=== PATIENT | female | born 1935 | race African-American/Black ===

== ENCOUNTER 2020-07-03 10:30 | Emergency (ER) | payer MEDICARE | END 2020-07-03 11:56 | disposition home or self-care (01) | LOC: ERS 10:30 | DX: M62.838 Other muscle spasm (principal); I25.2 Old myocardial infarction; K21.9 Gastro-esophageal reflux disease without esophagitis; I10 Essential (primary) hypertension; E11.9 Type 2 diabetes mellitus without complications | CPT/HCPCS: 99283 ==

== ENCOUNTER 2021-02-12 17:38 | Emergency (ER) | payer MEDICARE | END 2021-02-12 19:40 | disposition home or self-care (01) | LOC: ERS 17:38 | DX: S10.96XA Insect bite of unspecified part of neck, initial encounter (principal); S80.862A Insect bite (nonvenomous), left lower leg, initial encounter; S80.861A Insect bite (nonvenomous), right lower leg, initial encounter; I25.2 Old myocardial infarction; E11.9 Type 2 diabetes mellitus without complications; K21.9 Gastro-esophageal reflux disease without esophagitis; I10 Essential (primary) hypertension; Z79.899 Other long term (current) drug therapy; W57.XXXA Bitten or stung by nonvenomous insect and other nonvenomous arthropods, initial encounter | CPT/HCPCS: 99282 ==

== ENCOUNTER 2022-05-28 08:27 | Emergency (ER) | payer MEDICARE ==
[2022-05-28 09:40] LABS: #Eosinphils 0.1 thou/uL (0.0-0.7); #Lymphocytes 1.6 thou/uL (1.20-3.40); #Monocytes 0.5 thou/uL (0.11-0.59); #Neutrophils 2.5 thou/uL (1.40-6.50); %Basophils 0.9 % (0.0-1.0); %Eosinophils 2.8 % (0.0-10.0); %Lymphocytes 33.7 % (21.0-51.0); %Neutrophils 52.6 % (42.0-75.0); Hemoglobin 12.8 g/dL (12.0-16.0); Mean Corpuscular HGB CONC 31.9 g/dL (32.0-36.0); Mean Corpuscular Hemoglobin 29.6 pg (27.0-31.0); Mean Corpuscular Volume 92.8 fl (78.0-98.0); Mean Platelet Volume 7.2 fL (7.4-10.4); Platelet Count 194 10x3/uL (130-400); RBC Distribution Width 12.6 % (11.5-14.5); Red Blood Cell (RBC) Count 4.31 mill/uL (4.20-5.40); White Blood Cell (WBC) Count 4.8 10x3/uL (4.8-10.8)
[2022-05-28 10:03] LABS: ALT (SGPT) 18 U/L (8-55); AST (SGOT) 25 U/L (5-34); Albumin 4.3 g/dL (3.4-4.8); Alkaline Phosphatase 79 U/L (40-110); Anion Gap 17 mmol/L (10-20); BUN (Urea Nitrogen) 32 mg/dL (9.8-20.1); Bilirubin, Total 0.6 mg/dL (0.2-1.2); Calc. Creatinine Clearance 0 mL/min (70-130); Calcium 9.5 mg/dL (7.8-10.44); Carbon Dioxide 21 mmol/L (23-31); Chloride 106 mmol/L (98-107); Estimated GFR 31; Globulin 3.3 g/dL (2.4-3.5); Glucose 62 mg/dL (83-110); Potassium 3.6 mmol/L (3.5-5.1); Protein, Total 7.6 g/dL (5.8-8.1); Sodium 140 mmol/L (136-145)
== END 2022-05-28 13:55 | disposition short-term general hospital (02) ==
LOC: ERS 08:27
DX: R07.9 Chest pain, unspecified (principal); E11.9 Type 2 diabetes mellitus without complications; I10 Essential (primary) hypertension
CPT/HCPCS: 36415; 71045; 80053; 83880; 84484; 85025; 93005

== ENCOUNTER 2023-10-03 08:04 | Inpatient (IN) | payer MEDICARE ==
[2023-10-04 12:27] VITALS: BMI 22.0
[2023-10-07 19:23] VITALS: BMI 19.2
[2023-10-09 12:14] VITALS: BP 116/70; TEMP 98.9
== END 2023-10-09 15:25 | disposition home health service (06) | DRG 65 ==
LOC: ERS 08:04 → ERHOLD 10:54 → 2SE 19:57 → OBSVTOIN 10-04 15:07
PROVIDERS: ADMIT Family Medicine; ATTEND Internal Medicine
PROC: B24BZZ4 Ultrasonography of Heart with Aorta, Transesophageal (ICD-10-PCS; principal; 2023-10-08)
DX: I63.9 Cerebral infarction, unspecified (principal); I13.0 Hypertensive heart and chronic kidney disease with heart failure and stage 1 through stage 4 chronic kidney disease, or unspecified chronic kidney disease; N17.9 Acute kidney failure, unspecified; I50.32 Chronic diastolic (congestive) heart failure; N18.30 Chronic kidney disease, stage 3 unspecified; I25.10 Atherosclerotic heart disease of native coronary artery without angina pectoris; E11.22 Type 2 diabetes mellitus with diabetic chronic kidney disease; F03.90 Unspecified dementia, unspecified severity, without behavioral disturbance, psychotic disturbance, mood disturbance, and anxiety; Z66 Do not resuscitate; I25.2 Old myocardial infarction; F41.9 Anxiety disorder, unspecified; K21.9 Gastro-esophageal reflux disease without esophagitis; Z88.2 Allergy status to sulfonamides; Z79.82 Long term (current) use of aspirin; Z79.899 Other long term (current) drug therapy; Z98.890 Other specified postprocedural states; Z79.84 Long term (current) use of oral hypoglycemic drugs
CPT/HCPCS: 36415; 36416; 70450; 70551; 80048; 80053; 80061; 81003; 81015; 83036; 84443; 84484; 85025; 85027; 93005; 93306; 93312; 93880; 96372; 96374; 96376; G0378; J1650; J1815; J2704; J3480; J3490

== ENCOUNTER 2024-01-08 21:33 | Inpatient (IN) | payer MEDICARE ==
[~2024-01-08 21:33] MED LIST: Iopamidol 370 76% 100 ML VIAL ONE
[2024-01-08 22:07] LABS: #Basophils 0.07 10x3/uL (0.0-0.2); %Basophils 1.6 % (0.0-1.0); %Eosinophils 4.6 % (0.0-10.0); %Lymphocytes 33.8 % (21.0-51.0); %Monocytes 15.3 % (0.0-10.0); %Neutrophils 44.2 % (42.0-75.0); Hematocrit 44.3 % (36.0-47.0); Hemoglobin 14.2 g/dL (12.0-16.0); Mean Corpuscular HGB CONC 32.1 g/dL (32.0-36.0); Mean Corpuscular Volume 90.4 fL (78.0-98.0); Mean Platelet Volume 9.9 fL (7.4-10.4); Platelet Count 180 10x3/uL (130-400); RBC Distribution Width 15.5 % (11.5-14.5)
[2024-01-08 22:11] LABS: PTT 27.5 sec (22.9-36.1); Prothrombin Time 12.7 sec (12.0-14.7)
[2024-01-08 22:32] LABS: ALT (SGPT) 25 U/L (8-55); AST (SGOT) 31 U/L (5-34); Albumin 3.2 g/dL (3.4-4.8); Alkaline Phosphatase 80 U/L (40-110); Anion Gap 14 mmol/L (10-20); BUN (Urea Nitrogen) 16 mg/dL (9.8-20.1); Bilirubin, Total 0.3 mg/dL (0.2-1.2); Calc. Creatinine Clearance 0 mL/min (70-130); Calcium 9.3 mg/dL (7.8-10.44); Carbon Dioxide 18 mmol/L (23-31); Chloride 111 mmol/L (98-107); Estimated GFR 43; Globulin 3.9 g/dL (2.4-3.5); Glucose 312 mg/dL (83-110); Potassium 4.9 mmol/L (3.5-5.1); Protein, Total 7.1 g/dL (5.8-8.1); Sodium 138 mmol/L (136-145)
[2024-01-08 22:34] LABS: Troponin I Less than 0.010 ng/mL (< 0.028)
[2024-01-08] MEDS ORDERED: Aspirin Chewable 81 MG TAB ONE (22:44)
[2024-01-08] MEDS ORDERED: hydrALAZINE 20 MG/ML VIAL ONE (22:44)
[2024-01-09] MEDS ORDERED: Acetaminophen 650 MG Suppository PR PRN (01:24)
[2024-01-09] MEDS ORDERED: Ondansetron PF 4 MG/2 ML Vial IVP PRN (01:24)
[2024-01-09] MEDS ORDERED: Ondansetron ODT 4 MG TAB PO PRN (01:24)
[2024-01-09] MEDS ORDERED: hydrALAZINE 20 MG/ML VIAL SLOW IVP PRN (01:24)
[2024-01-09] MEDS ORDERED: Acetaminophen 325 MG TAB PO PRN (01:24)
[2024-01-09] MEDS ORDERED: Dextrose 50% Abboject 50 ML SYRINGE SLOW IVP PRN (01:39)
[2024-01-09] MEDS ORDERED: Dextrose 5% in Water 1,000 ML IV PRN (01:39)
[2024-01-09] MEDS ORDERED: Glucagon 1 MG/ML KIT IM PRN (01:39)
[2024-01-09] MEDS ORDERED: Clopidogrel Bisulfate 75 MG TAB ONE (08:04)
[2024-01-09] MEDS ORDERED: Famotidine 20 MG TAB ONE (08:05)
[2024-01-09] MEDS ORDERED: Atorvastatin Calcium 40 MG TAB ONE (08:05)
[2024-01-09] MEDS ORDERED: Aspirin Chewable 81 MG TAB ONE (08:05)
[2024-01-09] MEDS ORDERED: Memantine 10 MG TAB ONE (08:05)
[2024-01-09] MEDS: Memantine 5 MG TAB PO SCH (08:45)
[2024-01-09] MEDS: Atorvastatin Calcium 40 MG TAB PO SCH (08:47)
[2024-01-09] MEDS: Famotidine 20 MG TAB PO SCH (08:48)
[2024-01-09] MEDS: Clopidogrel Bisulfate 75 MG TAB PO SCH (08:48)
[2024-01-09] MEDS: Famotidine/PF 20 mg/2ml Vial SLOW IVP SCH (08:48)
[2024-01-09] MEDS: Aspirin Chewable 81 MG TAB PO SCH (08:48)
[2024-01-09] MEDS: Dapagliflozin Propanediol 10 MG TAB PO SCH (11:18)
[2024-01-09] MEDS: Glimepiride 4 MG TAB PO SCH (11:18)
[2024-01-09] MEDS ORDERED: Insulin Lispro 100 UNIT/ML 10 ML VIAL ONE (12:03)
[2024-01-09] MEDS: Insulin Lispro 100 UNIT/ML 10 ML VIAL SC PRN (13:12)
[2024-01-09 15:43] VITALS: BMI 20.5
[2024-01-09 17:35] LABS: Anion Gap 13 mmol/L (10-20); BUN (Urea Nitrogen) 11 mg/dL (9.8-20.1); Calc. Creatinine Clearance 29 mL/min (70-130); Calcium 9.8 mg/dL (7.8-10.44); Carbon Dioxide 22 mmol/L (23-31); Cardiac Risk 3.1 (Less than 4.5); Chloride 109 mmol/L (98-107); Cholesterol 166 mg/dl (< 200 Desired); Estimated GFR 55; Glucose 91 mg/dL (83-110); HDL Cholesterol 54 mg/dL (>60 Neg Risk); LDL Cholesterol, Calculated 96 mg/dL; Potassium 3.6 mmol/L (3.5-5.1); Sodium 140 mmol/L (136-145); Triglycerides 79 mg/dL (Less than 150)
[2024-01-09] MEDS: Labetalol HCl 100 MG/20 ML VIAL SLOW IVP PRN (20:14)
[2024-01-09 21:04] LABS: Bacteria/HPF None Seen HPF (None Seen); Bilirubin Negative (Negative); Blood, Urine Negative (Negative); CAUTI Indications for Culture Alt mental st,lethar; Clarity Clear (Clear); Glucose, Urine (Dipstick) Greater than 1000 mg/dL (Negative); Ketone, Urine Negative (Negative); Leukocyte Negative Leu/uL (Negative); Nitrite Negative (Negative); Protein, Urine (Dipstick) 50 mg/dL (Neg-Trace); RBC/HPF 0-3 HPF (0-3); Specific Gravity, Urine 1.031 (1.002-1.036); Squamous Epithelial None Seen HPF (0-3); Urobilinogen Normal mg/dL (Less than 2); WBC/HPF 0-3 HPF (0-3)
[2024-01-09 21:14] LABS: Urine Culture Reflex No No
[2024-01-10] MEDS: Famotidine 20 MG TAB PO SCH (10:21)
[2024-01-10] MEDS: Famotidine/PF 20 mg/2ml Vial SLOW IVP SCH (10:22)
[2024-01-10 10:34] VITALS: BMI 20.5
[2024-01-10] MEDS: Ziprasidone 20 MG VIAL IM SCH (20:55)
[2024-01-11] MEDS: Atorvastatin Calcium 40 MG TAB PO SCH (01:26)
[2024-01-11] MEDS: Famotidine/PF 20 mg/2ml Vial SLOW IVP SCH (08:58)
[2024-01-11] MEDS: Famotidine 20 MG TAB PO SCH (08:59)
[2024-01-11] MEDS: FLU (Fluad Triv) TS24-25 (65UP)/MF59C/PF 45 MCG/0.5 ML Syringe IM ONE (09:00)
[2024-01-11] MEDS: QUEtiapine 25 MG TAB PO SCH (09:43)
[2024-01-11] MEDS ORDERED: Ipratropium/Albuterol 3 ML NEB NEB PRN (11:58)
[2024-01-11] MEDS: Ipratropium/Albuterol 3 ML NEB NEB SCH (14:02)
[2024-01-11] MEDS: Ziprasidone 20 MG VIAL IM SCH (20:53)
[2024-01-11] MEDS: Sterile Water 10 ML VIAL FS PRN (20:53)
[2024-01-12 04:47] LABS: Anion Gap 18 mmol/L (10-20); BUN (Urea Nitrogen) 24 mg/dL (9.8-20.1); Calc. Creatinine Clearance 19 mL/min (70-130); Calcium 9.4 mg/dL (7.8-10.44); Carbon Dioxide 16 mmol/L (23-31); Chloride 111 mmol/L (98-107); Estimated GFR 33; Glucose 179 mg/dL (83-110); Potassium 4.1 mmol/L (3.5-5.1); Sodium 141 mmol/L (136-145)
[2024-01-12 06:36] LABS: #Basophils 0.07 10x3/uL (0.0-0.2); %Basophils 1.2 % (0.0-1.0); %Eosinophils 2.7 % (0.0-10.0); %Lymphocytes 17.4 % (21.0-51.0); %Monocytes 13.9 % (0.0-10.0); %Neutrophils 64.4 % (42.0-75.0); Hematocrit 46.5 % (36.0-47.0); Hemoglobin 14.7 g/dL (12.0-16.0); Mean Corpuscular HGB CONC 31.6 g/dL (32.0-36.0); Mean Corpuscular Hemoglobin 28.7 pg (27.0-31.0); Mean Corpuscular Volume 90.6 fL (78.0-98.0); Mean Platelet Volume 9.6 fL (7.4-10.4); Platelet Count 163 10x3/uL (130-400); RBC Distribution Width 15.4 % (11.5-14.5); Red Blood Cell (RBC) Count 5.13 mill/uL (4.20-5.40)
[2024-01-12] MEDS: Lactated Ringer's 500 ML IV SCH (09:23)
[2024-01-12] MEDS ORDERED: Ipratropium/Albuterol 3 ML NEB NEB PRN (17:55)
[2024-01-13] MEDS: QUEtiapine 25 MG TAB PO SCH (00:11)
[2024-01-13 05:38] LABS: #Basophils 0.05 10x3/uL (0.0-0.2); %Eosinophils 3.9 % (0.0-10.0); %Lymphocytes 19.7 % (21.0-51.0); %Monocytes 12.3 % (0.0-10.0); %Neutrophils 62.9 % (42.0-75.0); Hematocrit 44.5 % (36.0-47.0); Hemoglobin 14.2 g/dL (12.0-16.0); Mean Corpuscular HGB CONC 31.9 g/dL (32.0-36.0); Mean Corpuscular Hemoglobin 28.7 pg (27.0-31.0); Mean Corpuscular Volume 90.1 fL (78.0-98.0); Mean Platelet Volume 9.6 fL (7.4-10.4); Platelet Count 164 10x3/uL (130-400); RBC Distribution Width 15.3 % (11.5-14.5); Red Blood Cell (RBC) Count 4.94 mill/uL (4.20-5.40)
[2024-01-13 06:45] LABS: Anion Gap 15 mmol/L (10-20); BUN (Urea Nitrogen) 26 mg/dL (9.8-20.1); Calc. Creatinine Clearance 21 mL/min (70-130); Calcium 9.1 mg/dL (7.8-10.44); Carbon Dioxide 18 mmol/L (23-31); Chloride 112 mmol/L (98-107); Estimated GFR 37; Glucose 153 mg/dL (83-110); Potassium 3.7 mmol/L (3.5-5.1); Sodium 141 mmol/L (136-145)
[2024-01-14 00:13] LABS: #Basophils 0.04 10x3/uL (0.0-0.2); %Basophils 0.7 % (0.0-1.0); %Eosinophils 2.6 % (0.0-10.0); %Lymphocytes 17.3 % (21.0-51.0); %Monocytes 12.4 % (0.0-10.0); %Neutrophils 66.8 % (42.0-75.0); Hematocrit 44.5 % (36.0-47.0); Hemoglobin 14.2 g/dL (12.0-16.0); Mean Corpuscular HGB CONC 31.9 g/dL (32.0-36.0); Mean Corpuscular Hemoglobin 28.8 pg (27.0-31.0); Mean Corpuscular Volume 90.3 fL (78.0-98.0); Mean Platelet Volume 9.7 fL (7.4-10.4); Platelet Count 153 10x3/uL (130-400); RBC Distribution Width 15.3 % (11.5-14.5); Red Blood Cell (RBC) Count 4.93 mill/uL (4.20-5.40)
[2024-01-14 00:28] LABS: Base Excess -4.5 mEq/L (-2.0 to +3.0); Chloride (VBG) 109 mmol/L (98-106); Hematocrit-VBG 44 % (36.0-47.0); Hemoglobin (Hb) 15.1 g/dL (11.7-16.1); pH (venous) 7.471 (7.32-7.43)
[2024-01-14 00:43] LABS: ALT (SGPT) 24 U/L (8-55); AST (SGOT) 24 U/L (5-34); Albumin 2.9 g/dL (3.4-4.8); Alkaline Phosphatase 80 U/L (40-110); Anion Gap 15 mmol/L (10-20); BUN (Urea Nitrogen) 28 mg/dL (9.8-20.1); Bilirubin, Total 0.5 mg/dL (0.2-1.2); Calc. Creatinine Clearance 20 mL/min (70-130); Carbon Dioxide 16 mmol/L (23-31); Chloride 111 mmol/L (98-107); Estimated GFR 35; Globulin 3.7 g/dL (2.4-3.5); Glucose 225 mg/dL (83-110); Potassium 3.9 mmol/L (3.5-5.1); Protein, Total 6.6 g/dL (5.8-8.1); Sodium 138 mmol/L (136-145)
[2024-01-14 04:25] LABS: #Basophils 0.04 10x3/uL (0.0-0.2); %Basophils 0.7 % (0.0-1.0); %Eosinophils 2.4 % (0.0-10.0); %Lymphocytes 21.6 % (21.0-51.0); %Monocytes 12.5 % (0.0-10.0); %Neutrophils 62.4 % (42.0-75.0); Hematocrit 43.1 % (36.0-47.0); Mean Corpuscular HGB CONC 32.5 g/dL (32.0-36.0); Mean Corpuscular Hemoglobin 28.2 pg (27.0-31.0); Mean Corpuscular Volume 86.9 fL (78.0-98.0); Platelet Count 162 10x3/uL (130-400); RBC Distribution Width 15.4 % (11.5-14.5); Red Blood Cell (RBC) Count 4.96 mill/uL (4.20-5.40)
[2024-01-14 04:46] LABS: Anion Gap 14 mmol/L (10-20); BUN (Urea Nitrogen) 26 mg/dL (9.8-20.1); Calc. Creatinine Clearance 21 mL/min (70-130); Carbon Dioxide 18 mmol/L (23-31); Chloride 111 mmol/L (98-107); Estimated GFR 37; Glucose 198 mg/dL (83-110); Potassium 3.9 mmol/L (3.5-5.1); Sodium 139 mmol/L (136-145)
[2024-01-14] MEDS: Insulin Lispro 100 UNIT/ML 10 ML VIAL SC PRN (21:54)
[2024-01-14] MEDS: QUEtiapine 25 MG TAB PO SCH (21:55)
[2024-01-15 04:51] LABS: #Basophils 0.04 10x3/uL (0.0-0.2); %Basophils 0.7 % (0.0-1.0); %Eosinophils 3.2 % (0.0-10.0); %Neutrophils 60.9 % (42.0-75.0); Hematocrit 42.7 % (36.0-47.0); Mean Corpuscular HGB CONC 32.8 g/dL (32.0-36.0); Mean Corpuscular Hemoglobin 28.9 pg (27.0-31.0); Mean Platelet Volume 9.9 fL (7.4-10.4); Platelet Count 167 10x3/uL (130-400); RBC Distribution Width 15.3 % (11.5-14.5); Red Blood Cell (RBC) Count 4.85 mill/uL (4.20-5.40)
[2024-01-15 05:57] LABS: Anion Gap 16 mmol/L (10-20); BUN (Urea Nitrogen) 22 mg/dL (9.8-20.1); Calc. Creatinine Clearance 24 mL/min (70-130); Calcium 8.9 mg/dL (7.8-10.44); Carbon Dioxide 20 mmol/L (23-31); Chloride 111 mmol/L (98-107); Estimated GFR 44; Glucose 69 mg/dL (83-110); Potassium 3.8 mmol/L (3.5-5.1); Sodium 143 mmol/L (136-145)
[2024-01-15] MEDS: Ipratropium/Albuterol 3 ML NEB NEB SCH (11:38)
[2024-01-15] MEDS: hydrALAZINE 20 MG/ML VIAL SLOW IVP PRN (16:18)
[2024-01-15 16:59] VITALS: BP 122/64
[2024-01-15 18:24] VITALS: TEMP 97.9
== END 2024-01-15 18:40 | DRG 65 ==
LOC: ERS 21:33 → ERHOLD 01-09 00:43 → 2SE 01-09 15:03 → OBSVTOIN 01-10 11:11
PROVIDERS: ADMIT Internal Medicine; ATTEND Family Medicine
DX: I63.9 Cerebral infarction, unspecified (principal); I13.0 Hypertensive heart and chronic kidney disease with heart failure and stage 1 through stage 4 chronic kidney disease, or unspecified chronic kidney disease; N17.9 Acute kidney failure, unspecified; I25.10 Atherosclerotic heart disease of native coronary artery without angina pectoris; E78.5 Hyperlipidemia, unspecified; F03.90 Unspecified dementia, unspecified severity, without behavioral disturbance, psychotic disturbance, mood disturbance, and anxiety; E11.22 Type 2 diabetes mellitus with diabetic chronic kidney disease; R09.02 Hypoxemia; E11.65 Type 2 diabetes mellitus with hyperglycemia; I50.9 Heart failure, unspecified; Z79.899 Other long term (current) drug therapy; Z86.73 Personal history of transient ischemic attack (TIA), and cerebral infarction without residual deficits; Z88.2 Allergy status to sulfonamides; I25.2 Old myocardial infarction; Z95.2 Presence of prosthetic heart valve; Z98.890 Other specified postprocedural states
CPT/HCPCS: 36415; 36416; 70450; 70496; 70498; 70551; 71045; 80048; 80053; 80061; 81001; 82805; 83036; 83880; 84443; 84484; 85025; 85610; 85730; 90653; 93005; 94640; 96374; 96375; G0378; J0360; J1815; J3486; J3490; J7120; J7620; Q9967

== ENCOUNTER 2024-02-17 22:28 | Observation (INO) | payer MEDICARE ==
[~2024-02-17 22:28] MED LIST changes: -Iopamidol 370 76% 100 ML VIAL ONE; +Iopamidol-370 76% 500 ML MDV (1 ML CHARGE) ONE
[2024-02-17 23:34] LABS: #Basophils 0.04 10x3/uL (0.0-0.2); %Basophils 0.6 % (0.0-1.0); %Eosinophils 0.6 % (0.0-10.0); %Lymphocytes 15.4 % (21.0-51.0); %Monocytes 13.6 % (0.0-10.0); %Neutrophils 69.5 % (42.0-75.0); Hematocrit 40.9 % (36.0-47.0); Hemoglobin 12.9 g/dL (12.0-16.0); Mean Corpuscular HGB CONC 31.5 g/dL (32.0-36.0); Mean Corpuscular Volume 88.9 fL (78.0-98.0); Mean Platelet Volume 9.3 fL (7.4-10.4); Platelet Count 219 10x3/uL (130-400); RBC Distribution Width 15.8 % (11.5-14.5)
[2024-02-17 23:50] LABS: ALT (SGPT) 7 U/L (8-55); AST (SGOT) 15 U/L (5-34); Albumin 2.6 g/dL (3.4-4.8); Alkaline Phosphatase 82 U/L (40-110); Anion Gap 14 mmol/L (10-20); BUN (Urea Nitrogen) 17 mg/dL (9.8-20.1); Bilirubin, Total 0.6 mg/dL (0.2-1.2); Calc. Creatinine Clearance 0 mL/min (70-130); Calcium 8.7 mg/dL (7.8-10.44); Carbon Dioxide 18 mmol/L (23-31); Chloride 108 mmol/L (98-107); Estimated GFR 46; Globulin 4.1 g/dL (2.4-3.5); Glucose 182 mg/dL (83-110); Potassium 3.8 mmol/L (3.5-5.1); Protein, Total 6.7 g/dL (5.8-8.1); Sodium 136 mmol/L (136-145)
[2024-02-17 23:53] LABS: INR-International Normal Ratio 1.1; PTT 28.1 sec (22.9-36.1); Prothrombin Time 13.9 sec (12.0-14.7)
[2024-02-17 23:54] LABS: Troponin I Less than 0.010 ng/mL (< 0.028)
[2024-02-18] MEDS ORDERED: Ipratropium/Albuterol 3 ML NEB NEB PRN (01:54)
[2024-02-18] MEDS ORDERED: Dextrose 50% Abboject 50 ML SYRINGE SLOW IVP PRN (01:55)
[2024-02-18] MEDS ORDERED: Insulin Lispro 100 UNIT/ML 10 ML VIAL SC PRN ×2 (01:55)
[2024-02-18] MEDS ORDERED: Dextrose 5% in Water 1,000 ML IV PRN (01:55)
[2024-02-18] MEDS ORDERED: Glucagon 1 MG/ML KIT IM PRN (01:55)
[2024-02-18 03:57] VITALS: BMI 21.1
[2024-02-18] MEDS: Lactated Ringer's 1,000 ML IV SCH (04:00)
[2024-02-18 04:46] LABS: #Basophils 0.04 10x3/uL (0.0-0.2); %Basophils 0.5 % (0.0-1.0); %Eosinophils 0.5 % (0.0-10.0); %Lymphocytes 15.9 % (21.0-51.0); %Monocytes 15.5 % (0.0-10.0); %Neutrophils 67.5 % (42.0-75.0); Hemoglobin 12.7 g/dL (12.0-16.0); Mean Corpuscular HGB CONC 32.6 g/dL (32.0-36.0); Mean Corpuscular Hemoglobin 28.3 pg (27.0-31.0); Mean Corpuscular Volume 86.9 fL (78.0-98.0); Mean Platelet Volume 9.2 fL (7.4-10.4); Platelet Count 211 10x3/uL (130-400); RBC Distribution Width 15.7 % (11.5-14.5); Red Blood Cell (RBC) Count 4.49 mill/uL (4.20-5.40)
[2024-02-18 04:53] LABS: Anion Gap 14 mmol/L (10-20); BUN (Urea Nitrogen) 17 mg/dL (9.8-20.1); Calc. Creatinine Clearance 25 mL/min (70-130); Carbon Dioxide 18 mmol/L (23-31); Chloride 109 mmol/L (98-107); Estimated GFR 48; Glucose 156 mg/dL (83-110); Potassium 3.8 mmol/L (3.5-5.1); Sodium 137 mmol/L (136-145)
[2024-02-18] MEDS ORDERED: Acetaminophen 325 MG TAB PO PRN (11:10)
[2024-02-18] MEDS: Atorvastatin Calcium 40 MG TAB PO SCH (11:18)
[2024-02-18] MEDS: Aspirin Chewable 81 MG TAB PO SCH (11:18)
[2024-02-18] MEDS: Clopidogrel Bisulfate 75 MG TAB PO SCH (11:18)
[2024-02-18] MEDS: Memantine 5 MG TAB PO SCH (11:19)
[2024-02-18] MEDS: Dapagliflozin Propanediol 10 MG TAB PO SCH (11:19)
[2024-02-18 12:15] VITALS: TEMP 98.2
[2024-02-18] MEDS: Heparin 5,000 UNITS/ML VIAL SC SCH (15:39)
[2024-02-18 16:11] VITALS: BP 143/72
[2024-02-18] MEDS ORDERED: QUEtiapine 25 MG TAB PO SCH (21:00)
[2024-02-19] MEDS ORDERED: Pantoprazole 40 MG VIAL IVP SCH (09:00)
== END 2024-02-18 17:00 | disposition home or self-care (01) ==
LOC: ERS 22:28 → ERHOLD 02-18 00:55 → 2SE 02-18 03:33
PROVIDERS: ADMIT Family Medicine; ATTEND Family Medicine
DX: R41.82 Altered mental status, unspecified (principal); I13.0 Hypertensive heart and chronic kidney disease with heart failure and stage 1 through stage 4 chronic kidney disease, or unspecified chronic kidney disease; I50.9 Heart failure, unspecified; N18.31 Chronic kidney disease, stage 3a; E11.22 Type 2 diabetes mellitus with diabetic chronic kidney disease; I25.2 Old myocardial infarction; F03.90 Unspecified dementia, unspecified severity, without behavioral disturbance, psychotic disturbance, mood disturbance, and anxiety; E78.5 Hyperlipidemia, unspecified; R53.81 Other malaise; Z79.82 Long term (current) use of aspirin; Z79.899 Other long term (current) drug therapy; Z88.2 Allergy status to sulfonamides; Z79.02 Long term (current) use of antithrombotics/antiplatelets; Z86.73 Personal history of transient ischemic attack (TIA), and cerebral infarction without residual deficits
CPT/HCPCS: 70450; 70496; 70498; 70551; 73100; 80048; 80053; 82962; 84484; 85025 ×2; 85610; 85730; 93005; 94760; G0378 ×2; J7120; Q9967; 36415; 36416